=== PATIENT | female | born 1995 | race Asian ===

== ENCOUNTER 2020-03-12 16:00 | Emergency (ER) | payer OTHER ==
[~2020-03-12] VITALS: Ht 157.5 cm; Wt 59.0 kg
[2020-03-12 16:46] VITALS: BP 103/62; TEMP 98.5
== END 2020-03-12 16:46 | disposition home or self-care (01) ==
LOC: ED 16:00
DX: N76.0 Acute vaginitis (principal)
CPT/HCPCS: 81000; 99282

== ENCOUNTER 2020-05-01 16:19 | Emergency (ER) | payer OTHER ==
[~2020-05-01] VITALS: Ht 157.5 cm; Wt 59.0 kg
[2020-05-01 16:28] VITALS: BP 99/48; TEMP 98.5
== END 2020-05-01 17:34 | disposition home or self-care (01) ==
LOC: ED 16:19
DX: A56.8 Sexually transmitted chlamydial infection of other sites (principal)
CPT/HCPCS: 81000; 81025; 87490; 87590; 96372; 99283; J0696

== ENCOUNTER 2020-07-02 17:46 | Emergency (ER) | payer OTHER ==
[~2020-07-02] VITALS: Ht 157.5 cm; Wt 59.0 kg
[2020-07-02 17:55] VITALS: TEMP 96.6
[2020-07-02 18:52] VITALS: BP 117/65
== END 2020-07-02 18:59 | disposition home or self-care (01) ==
LOC: ED 17:46
DX: K02.9 Dental caries, unspecified (principal); K08.89 Other specified disorders of teeth and supporting structures
CPT/HCPCS: 81025; 96372; 99283; J1885